=== PATIENT | male | born 1945 | race African-American/Black ===

== ENCOUNTER 2019-01-04 14:04 | Emergency (ER) | payer MEDICAID ==
[~2019-01-04] VITALS: Ht 172.7 cm; Wt 100.0 kg
[~2019-01-04 14:04] MED LIST: ASPI-1393 PO; METO25TA6 PO
[2019-01-04 16:19] LABS: CLARITY URINE CLEAR (CLEAR); COLOR URINE YELLOW (YELLOW); KETONES URINE NEGATIVE (NEGATIVE); LEUKOCYTE ESTERASE URINE 1+ (NEGATIVE); NITRITE URINE NEGATIVE (NEGATIVE); OCCULT BLOOD URINE NEGATIVE (NEGATIVE); PH URINE 6.5 (4.5-8.0); PROTEIN URINE NEGATIVE (NEGATIVE); SPECIFIC GRAVITY URINE 1.015 (1.005-1.030); UROBILINOGEN URINE 0.2 E.U./dL (0.2-1.0)
[2019-01-04 17:18] VITALS: BP 158/76
== END 2019-01-04 17:19 | disposition home or self-care (01) ==
LOC: ER 14:04
DX: M54.42 Lumbago with sciatica, left side (principal); M79.605 Pain in left leg; I10 Essential (primary) hypertension
CPT/HCPCS: 81003; 93971; 99284

== ENCOUNTER → 2023-08-04 | Outpatient (CLI) | payer MEDICARE, MEDICAID ==
[~2023-08-04] MED LIST changes: +ACET-2708 PO; -ASPI-1393 PO; +ASPI-1497 PO; +CEFAZOLIN SODIUM 1000MG/VIAL ONE; +CHOL500051 PO; +DEXAMETHASONE 4MG/ML 1ML VIAL ONE; +FENTANYL CITRATE/PF 50MCG/ML 2ML VIAL ONE; +GLYCOPYRROLATE 0.2 MG/ML 2ML VIAL ONE; +HYDRALAZINE 20MG/ML VIAL ONE; +HYDROMORPHONE HCL/PF 2MG/ML CPJ ONE; +ISOS30TA91 PO; +ISOS60TA76 PO; +LATA2.5D14 EACHEYE; +LIDOCAINE HCL 1% 10 MG/ML 10ML VIAL ONE; +LISI20TA31 PO; +METO-385 PO; +MIDAZOLAM HCL 2 MG/2 ML VIAL ONE; +NEOSTIGMINE METHYLSULFATE 1MG/ML 10 ML VIAL ONE; +NIFE-32 PO; +NITR0.4T49 SL; +ONDANSETRON HCL 4MG/2ML INJ ONE; +PROPOFOL 200MG/20ML VIAL IV ONE; +RANO500T6 PO; +ROCURONIUM BROMIDE 10MG/ML VIAL 5ML IV ONE; +SUCCINYLCHOLINE CHLORIDE 200MG/10ML IV ONE
[2023-08-04 10:55] LABS: BASOPHILS % 0.6 % (0.0-2.0); EOSINOPHILS % 5.4 % (0.0-5.0); HEMATOCRIT. 40.4 % (42.0-52.0); HEMOGLOBIN. 13.9 g/dL (14.0-18.0); LYMPHOCYTES % 53.3 % (20.0-50.0); MEAN CORPUSCULAR HEMOGLOBIN 32.4 pg (28.0-32.0); MEAN CORPUSCULAR HGB CONC 34.5 g/dL (31.0-37.0); MEAN PLATELET VOLUME 8.1 fl (7.4-10.4); MONOCYTES % 9.3 % (2.0-8.0); NEUTROPHILS % 31.4 % (40.0-76.0); PLATELET 198 x1000/uL (130-400); WHITE BLOOD COUNT 4.3 x1000/uL (4.5-11.0)
[2023-08-04 11:06] LABS: PARTIAL THROMBOPLASTIN TIME 24.5 sec (23.4-31.0); PROTHROMBIN TIME 11.2 sec (9.6-11.0)
[2023-08-04 11:16] LABS: CLARITY URINE CLEAR (CLEAR); COLOR URINE YELLOW (YELLOW); GLUCOSE URINE NEGATIVE (NEGATIVE); KETONES URINE NEGATIVE (NEGATIVE); LEUKOCYTE ESTERASE URINE 1+ (NEGATIVE); NITRITE URINE NEGATIVE (NEGATIVE); OCCULT BLOOD URINE NEGATIVE (NEGATIVE); PROTEIN URINE NEGATIVE (NEGATIVE); SPECIFIC GRAVITY URINE 1.006 (1.005-1.030); UROBILINOGEN URINE 0.2 E.U./dL (0.2-1.0)
[2023-08-04 11:20] LABS: ALANINE AMINOTRANSFERASE 16 IU/L (10-49); ALBUMIN 4.5 g/dL (3.2-4.8); ASPARTATE AMINOTRANSFERASE 19 IU/L (<34); BILIRUBIN TOTAL 0.7 mg/dL (0.1-1.0); CALCIUM 9.3 mg/dL (8.7-10.4); CARBON DIOXIDE 27 mEq/L (21-32); CHLORIDE 105 mEq/L (98-107); CREATININE 1.4 mg/dL (0.6-1.3); GLUCOSE 71 mg/dL (70-105); POTASSIUM 3.8 mEq/L (3.5-5.1); PROTEIN TOTAL 8.3 g/dL (6.0-8.3); SODIUM 138 mEq/L (136-145); UREA NITROGEN BLOOD 10 mg/dL (9-23)
[2023-08-04 12:06] LABS: RBC URINE 0-2 /hpf (0-2); SQUAMOUS EPITHELIAL CELL URINE NONE SEEN /lpf (RARE/1+); WBC URINE 0-2 /hpf (0-2)
[2023-08-04 12:07] LABS: BACTERIA URINE 2+
== END | disposition home or self-care (01) ==
LOC: LAB 10:18
PROVIDERS: ATTEND Neurological Surgery
DX: Z01.818 Encounter for other preprocedural examination (principal); M47.815 Spondylosis without myelopathy or radiculopathy, thoracolumbar region; M50.20 Other cervical disc displacement, unspecified cervical region
CPT/HCPCS: 36415; 71045; 80053; 81003; 85025; J1100; J1170; J2405; J2710; J3490

== ENCOUNTER 2023-08-07 05:43 | Inpatient (IN) | payer MEDICARE, MEDICAID ==
[2023-08-07] VITALS (21 sets, daily range): BP systolic 132–176; BP diastolic 49–62; PULSE 79–93; RESP 15–28; TEMP 98.3–98.5
[~2023-08-07] VITALS: Ht 170.2 cm; Wt 94.3 kg
[~2023-08-07 05:43] MED LIST changes: -ACET-2708 PO; -CEFAZOLIN SODIUM 1000MG/VIAL ONE; -CHOL500051 PO; -DEXAMETHASONE 4MG/ML 1ML VIAL ONE; -FENTANYL CITRATE/PF 50MCG/ML 2ML VIAL ONE; -GLYCOPYRROLATE 0.2 MG/ML 2ML VIAL ONE; -HYDRALAZINE 20MG/ML VIAL ONE; -HYDROMORPHONE HCL/PF 2MG/ML CPJ ONE; -ISOS30TA91 PO; -ISOS60TA76 PO; -LATA2.5D14 EACHEYE; -LIDOCAINE HCL 1% 10 MG/ML 10ML VIAL ONE; -LISI20TA31 PO; -METO-385 PO; -MIDAZOLAM HCL 2 MG/2 ML VIAL ONE; -NEOSTIGMINE METHYLSULFATE 1MG/ML 10 ML VIAL ONE; -NIFE-32 PO; -NITR0.4T49 SL; -ONDANSETRON HCL 4MG/2ML INJ ONE; -PROPOFOL 200MG/20ML VIAL IV ONE; -RANO500T6 PO; -ROCURONIUM BROMIDE 10MG/ML VIAL 5ML IV ONE; -SUCCINYLCHOLINE CHLORIDE 200MG/10ML IV ONE
[2023-08-07] MEDS ORDERED: LIDOCAINE HCL/EPINEPHRINE 1%-EPI 1:100,000 20 ML VIAL ONE (06:10)
[2023-08-07] MEDS ORDERED: THROMBIN (BOVINE) 5000 UNITS/VIAL TOP ONE (06:10)
[2023-08-07] MEDS ORDERED: GENTAMICIN SULF 40MG/ML 2ML VIAL ONE (06:10)
[2023-08-07] MEDS: LACTATED RINGERS 1,000 ML IV SCH (06:25)
[2023-08-07] MEDS ORDERED: CHOL500051 PO (06:30)
[2023-08-07] MEDS ORDERED: METO-385 PO (06:30)
[2023-08-07] MEDS ORDERED: RANO500T6 PO (06:30)
[2023-08-07] MEDS ORDERED: ISOS30TA91 PO (06:30)
[2023-08-07] MEDS ORDERED: ACET-2708 PO (06:32)
[2023-08-07] MEDS ORDERED: ONDANSETRON HCL 4MG/2ML INJ IV PRN (08:45)
[2023-08-07] MEDS ORDERED: MEPERIDINE HCL/PF 25MG/ML CPJ IV PRN (08:45)
[2023-08-07] MEDS ORDERED: LABETALOL 5MG/ML SYR 20 MG/4 ML SYRINGE IV PRN (08:45)
[2023-08-07] MEDS ORDERED: HYDRALAZINE 20MG/ML VIAL ONE (09:46)
[2023-08-07] MEDS ORDERED: NALOXONE HCL 0.4MG/ML VIAL IV PRN (10:30)
[2023-08-07] MEDS: HYDROMORPHONE HCL/PF 2MG/ML CPJ IV PRN ×2 (10:42→18:11)
[2023-08-07] MEDS: DEXT 5%/LACTATED RINGERS 1,000 ML IV SCH (10:52)
[2023-08-07] MEDS: NICARDIPINE 100 MG in SODIUM CHLORIDE 0.9% 60 ML IV PRN (11:47)
[2023-08-07] MEDS: DEXAMETHASONE 4MG/ML 1ML VIAL IV SCH (12:04)
[2023-08-07] MEDS ORDERED: CEFAZOLIN SODIUM 1000MG/VIAL IV SCH (14:00)
[2023-08-07] MEDS: CEFAZOLIN 1000MG PREMIX 50ML IV SCH (15:17)
[2023-08-07] MEDS ORDERED: IPRATROPIUM/ALBUTEROL 0.5-3(2.5)MG/3ML NEB HHN PRN (15:30)
[2023-08-07] MEDS: HYDRALAZINE 20MG/ML VIAL IV PRN (20:17)
[2023-08-07] MEDS: MORPHINE SULFATE 4 MG/ML INJ (FOR IV/IM USE) IV PRN (20:17)
[2023-08-07 20:54] LABS: LACTIC ACID 4.7 mmol/L (0.4-2.0)
[2023-08-07] MEDS: METOPROLOL SUCCINATE 50MG ER TABLET PO SCH (22:48)
[2023-08-07 23:15] LABS: CREATINE KINASE 606 IU/L (46-171); CREATINE KINASE MB FRACTION 11.8 ng/mL (0.5-3.6); TROPONIN I HIGH SENSITIVITY 27 ng/L (3.0-53)
[2023-08-07] MEDS: HYDROMORPHONE HCL/PF 2MG/ML CPJ IV NR (23:55)
[2023-08-08] VITALS (92 sets, daily range): BP systolic 136–152; BP diastolic 60–63; PULSE 67–102; RESP 12–35; TEMP 98.3–98.6
[2023-08-08 05:09] LABS: BASOPHILS % 0.1 % (0.0-2.0); HEMOGLOBIN. 13.5 g/dL (14.0-18.0); LYMPHOCYTES % 10.6 % (20.0-50.0); MEAN CORPUSCULAR HEMOGLOBIN 32.6 pg (28.0-32.0); MEAN CORPUSCULAR HGB CONC 34.6 g/dL (31.0-37.0); MEAN CORPUSCULAR VOLUME 94.2 fL (80.0-94.0); MEAN PLATELET VOLUME 8.2 fl (7.4-10.4); MONOCYTES % 3.5 % (2.0-8.0); NEUTROPHILS % 85.8 % (40.0-76.0); PLATELET 215 x1000/uL (130-400); RED BLOOD CELL COUNT 4.15 mill/uL (4.7-6.1); RED CELL DISTRIBUTION WIDTH 13.7 % (11.6-14.6)
[2023-08-08 05:15] LABS: CREATINE KINASE MB FRACTION 10.6 ng/mL (0.5-3.6)
[2023-08-08 05:18] LABS: ALANINE AMINOTRANSFERASE 14 IU/L (10-49); ALBUMIN 3.9 g/dL (3.2-4.8); ASPARTATE AMINOTRANSFERASE 24 IU/L (<34); BILIRUBIN TOTAL 0.5 mg/dL (0.1-1.0); CALCIUM 8.5 mg/dL (8.7-10.4); CARBON DIOXIDE 22 mEq/L (21-32); CHLORIDE 104 mEq/L (98-107); CHOLESTEROL 181 mg/dL (<200); CREATININE 1.2 mg/dL (0.6-1.3); GLUCOSE 139 mg/dL (70-105); HDL CHOLESTEROL 59 mg/dL (>55); LDL CHOLESTEROL 101 mg/dL (5-100); POTASSIUM 3.7 mEq/L (3.5-5.1); PROTEIN TOTAL 6.9 g/dL (6.0-8.3); SODIUM 134 mEq/L (136-145); T4 FREE 0.95 ng/dL (0.89-1.76); THYROID STIMULATING HORMONE 0.94 uIU/mL (0.55-4.78); TRIGLYCERIDE 62 mg/dL (0-150); UREA NITROGEN BLOOD 13 mg/dL (9-23)
[2023-08-08] MEDS: HYDROCODONE/ACETAMINOPHEN 7.5/325MG TABLET PO PRN (08:07)
[2023-08-08] MEDS ORDERED: NITR0.4T49 SL (09:15)
[2023-08-08] MEDS: ACETAMINOPHEN 325MG TABLET PO PRN (09:21)
[2023-08-08 12:51] LABS: LACTIC ACID 2.7 mmol/L (0.4-2.0)
[2023-08-08] MEDS: AMLODIPINE 2.5MG TABLET PO SCH (14:57)
[2023-08-08] MEDS ORDERED: LISINOPRIL 10MG TABLET PO SCH (15:30)
[2023-08-08 16:40] LABS: PHOSPHORUS 2.1 mg/dL (2.5-4.9)
[2023-08-08] MEDS ORDERED: LATA2.5D14 EACHEYE (18:18)
[2023-08-08] MEDS: ZOLPIDEM TARTRATE 5MG TABLET PO PRN (20:32)
[2023-08-08] MEDS: LATANOPROST 0.005% OPHTH DROPS 2.5ML EACHEYE SCH (21:05)
[2023-08-09] VITALS (91 sets, daily range): BP systolic 121–159; BP diastolic 52–115; PULSE 74–113; RESP 9–32; TEMP 98.3–98.9
[2023-08-09] MEDS: LISINOPRIL 5MG TABLET PO SCH (08:30)
[2023-08-09 09:36] LABS: HEMATOCRIT 39.8 % (42.0-52.0); HEMOGLOBIN 13.4 g/dL (14.0-18.0); MEAN CORPUSCULAR HEMOGLOBIN 31.9 pg (28.0-32.0); MEAN CORPUSCULAR HGB CONC 33.6 g/dL (31.0-37.0); PLATELET 221 x1000/uL (130-400); RED BLOOD CELL COUNT 4.19 mill/uL (4.7-6.1); WHITE BLOOD COUNT 8.8 x1000/uL (4.5-11.0)
[2023-08-09 09:59] LABS: ALANINE AMINOTRANSFERASE 12 IU/L (10-49); ALBUMIN 4.1 g/dL (3.2-4.8); ASPARTATE AMINOTRANSFERASE 20 IU/L (<34); BILIRUBIN TOTAL 0.5 mg/dL (0.1-1.0); CALCIUM 8.8 mg/dL (8.7-10.4); CARBON DIOXIDE 22 mEq/L (21-32); CHLORIDE 107 mEq/L (98-107); CREATININE 1.2 mg/dL (0.6-1.3); GLUCOSE 192 mg/dL (70-105); PROTEIN TOTAL 7.5 g/dL (6.0-8.3); SODIUM 136 mEq/L (136-145); UREA NITROGEN BLOOD 16 mg/dL (9-23)
[2023-08-09] MEDS: AMLODIPINE 5MG TABLET PO NR (13:11)
[2023-08-10] VITALS (98 sets, daily range): BP systolic 120–175; BP diastolic 54–105; PULSE 69–111; RESP 14–32; TEMP 98–98.8
[2023-08-10 05:46] LABS: HEMATOCRIT 39.8 % (42.0-52.0); HEMOGLOBIN 13.4 g/dL (14.0-18.0); MEAN CORPUSCULAR HEMOGLOBIN 32.3 pg (28.0-32.0); MEAN CORPUSCULAR HGB CONC 33.6 g/dL (31.0-37.0); PLATELET 217 x1000/uL (130-400); RED BLOOD CELL COUNT 4.14 mill/uL (4.7-6.1); RED CELL DISTRIBUTION WIDTH 13.9 % (11.6-14.6); WHITE BLOOD COUNT 8.8 x1000/uL (4.5-11.0)
[2023-08-10 05:56] LABS: ALANINE AMINOTRANSFERASE 11 IU/L (10-49); ALBUMIN 3.7 g/dL (3.2-4.8); ASPARTATE AMINOTRANSFERASE 18 IU/L (<34); BILIRUBIN TOTAL 0.6 mg/dL (0.1-1.0); CALCIUM 8.4 mg/dL (8.7-10.4); CARBON DIOXIDE 23 mEq/L (21-32); CHLORIDE 107 mEq/L (98-107); CREATININE 1.1 mg/dL (0.6-1.3); GLUCOSE 98 mg/dL (70-105); POTASSIUM 3.9 mEq/L (3.5-5.1); PROTEIN TOTAL 6.6 g/dL (6.0-8.3); SODIUM 138 mEq/L (136-145); UREA NITROGEN BLOOD 17 mg/dL (9-23)
[2023-08-10] MEDS: AMLODIPINE 10MG TABLET PO SCH (09:25)
[2023-08-10] MEDS: LISINOPRIL 10MG TABLET PO NR (11:24)
[2023-08-10 12:04] LABS: TROPONIN I HIGH SENSITIVITY 36 ng/L (3.0-53)
[2023-08-10] MEDS ORDERED: NIFEDIPINE XL 60MG TAB PO SCH (17:00)
[2023-08-11] VITALS (48 sets, daily range): BP systolic 110–159; BP diastolic 55–76; PULSE 79–108; RESP 13–32; TEMP 97.5–98.6; O2SAT 99
[2023-08-11 05:23] LABS: HEMOGLOBIN 14.1 g/dL (14.0-18.0); MEAN CORPUSCULAR HEMOGLOBIN 32.7 pg (28.0-32.0); MEAN CORPUSCULAR HGB CONC 34.5 g/dL (31.0-37.0); MEAN CORPUSCULAR VOLUME 94.7 fL (80.0-94.0); PLATELET 213 x1000/uL (130-400); RED BLOOD CELL COUNT 4.32 mill/uL (4.7-6.1); RED CELL DISTRIBUTION WIDTH 13.8 % (11.6-14.6); WHITE BLOOD COUNT 8.5 x1000/uL (4.5-11.0)
[2023-08-11 05:37] LABS: ALANINE AMINOTRANSFERASE 13 IU/L (10-49); ALBUMIN 3.7 g/dL (3.2-4.8); ASPARTATE AMINOTRANSFERASE 17 IU/L (<34); BILIRUBIN TOTAL 0.8 mg/dL (0.1-1.0); CALCIUM 8.3 mg/dL (8.7-10.4); CARBON DIOXIDE 25 mEq/L (21-32); CHLORIDE 106 mEq/L (98-107); GLUCOSE 81 mg/dL (70-105); POTASSIUM 3.7 mEq/L (3.5-5.1); PROTEIN TOTAL 6.7 g/dL (6.0-8.3); SODIUM 137 mEq/L (136-145); UREA NITROGEN BLOOD 17 mg/dL (9-23)
[2023-08-11] MEDS: AMLODIPINE 10MG TABLET PO SCH (09:01)
[2023-08-11] MEDS: LISINOPRIL 20MG TABLET PO SCH (12:04)
[2023-08-11] MEDS ORDERED: ISOSORBIDE MONONITRATE 30MG TABLET SR 24HR PO SCH (13:15)
[2023-08-11] MEDS ORDERED: NIFEDIPINE XL 60MG TAB PO SCH (13:15)
[2023-08-11] MEDS ORDERED: ASPI-1497 PO (14:36)
[2023-08-11] MEDS ORDERED: RANO500T6 PO (14:36)
[2023-08-11] MEDS ORDERED: METO-385 PO (14:36)
[2023-08-11] MEDS ORDERED: NIFE-32 PO (14:36)
[2023-08-11] MEDS ORDERED: LISI20TA31 PO (14:36)
[2023-08-11] MEDS ORDERED: ISOS60TA76 PO (14:36)
[2023-08-11] MEDS ORDERED: CHOL500051 PO (14:36)
[2023-08-11] MEDS ORDERED: NITR0.4T49 SL (14:36)
[2023-08-11] MEDS ORDERED: LATA2.5D14 EACHEYE (14:36)
[2023-08-11] MEDS: RANOLAZINE 500 MG TAB.SR.12H PO SCH (15:07)
[2023-08-11] MEDS: NIFEDIPINE XL 60MG TAB PO SCH (15:07)
[2023-08-12] MEDS ORDERED: ISOSORBIDE MONONITRATE 60MG TABLET SR 24HR PO SCH (09:00)
== END 2023-08-11 18:25 | disposition home or self-care (01) | DRG 471 ==
LOC: OR 05:43 → MICUSO 19:14 → 7WST 08-11 14:18
PROVIDERS: ADMIT Neurological Surgery; ATTEND Neurological Surgery
PROC: 0RG2071 Fusion of 2 or more Cervical Vertebral Joints with Autologous Tissue Substitute, Posterior Approach, Posterior Column, Open Approach (ICD-10-PCS; principal; 2023-08-07)
PROC: 00NW0ZZ Release Cervical Spinal Cord, Open Approach (ICD-10-PCS; 2023-08-07)
PROC: 4A11X4G Monitoring of Peripheral Nervous Electrical Activity, Intraoperative, External Approach (ICD-10-PCS; 2023-08-07)
DX: M48.02 Spinal stenosis, cervical region (principal); G82.50 Quadriplegia, unspecified; M47.12 Other spondylosis with myelopathy, cervical region; N39.0 Urinary tract infection, site not specified; N17.9 Acute kidney failure, unspecified; E87.1 Hypo-osmolality and hyponatremia; E87.20 Acidosis, unspecified; M47.22 Other spondylosis with radiculopathy, cervical region; I10 Essential (primary) hypertension; I16.0 Hypertensive urgency; D64.9 Anemia, unspecified; Z79.899 Other long term (current) drug therapy
CPT/HCPCS: 36415; 71045; 72040; 72141; 76000; 80053; 80061; 82550; 82553; 83036; 83605; 83735; 83880; 84100; 84145; 84439; 84443; 84484; 85025; 85027; 86850; 86900; 93005; 93306; 97116; 97162; 97535; J0330; J0360; J0690; J1100; J1170; J1580; J2250; J2270; J2704; J2710; J3010; J3490; J7040; J7050; J7121; L0172; C1713

== ENCOUNTER 2023-10-08 02:39 | Emergency (ER) | payer MEDICARE, MEDICAID ==
[~2023-10-08] VITALS: Ht 177.8 cm; Wt 82.0 kg
[~2023-10-08 02:39] MED LIST changes: +ACET-2708 PO; +CHOL500051 PO; +ISOS60TA76 PO; +LATA2.5D14 EACHEYE; +LISI20TA31 PO; +METO-385 PO; -METO25TA6 PO; +NIFE-32 PO; +NITR0.4T49 SL; +RANO500T6 PO
[2023-10-08 03:07] VITALS: BP 185/77; RESP 18; TEMP 98.4; O2SAT 100
[2023-10-08 03:08] VITALS: PULSE 77
[2023-10-08 03:38] LABS: BASOPHILS % 0.4 % (0.0-2.0); EOSINOPHILS % 3.7 % (0.0-5.0); HEMATOCRIT. 37.1 % (42.0-52.0); HEMOGLOBIN. 12.8 g/dL (14.0-18.0); LYMPHOCYTES % 40.7 % (20.0-50.0); MEAN CORPUSCULAR HEMOGLOBIN 32.7 pg (28.0-32.0); MEAN CORPUSCULAR HGB CONC 34.5 g/dL (31.0-37.0); MEAN CORPUSCULAR VOLUME 94.9 fL (80.0-94.0); MEAN PLATELET VOLUME 7.7 fl (7.4-10.4); MONOCYTES % 8.3 % (2.0-8.0); NEUTROPHILS % 46.9 % (40.0-76.0); PLATELET 207 x1000/uL (130-400); RED BLOOD CELL COUNT 3.91 mill/uL (4.7-6.1); RED CELL DISTRIBUTION WIDTH 14.9 % (11.6-14.6); WHITE BLOOD COUNT 5.1 x1000/uL (4.5-11.0)
[2023-10-08 03:43] LABS: CHLORIDE 105 mEq/L (98-107); POTASSIUM 3.9 mEq/L (3.5-5.1); SODIUM 138 mEq/L (136-145)
[2023-10-08 03:44] LABS: CALCIUM 9.6 mg/dL (8.7-10.4); CARBON DIOXIDE 25 mEq/L (21-32)
[2023-10-08 03:49] LABS: GLUCOSE 106 mg/dL (70-105); UREA NITROGEN BLOOD 9 mg/dL (9-23)
[2023-10-08 03:59] LABS: CREATININE 1.4 mg/dL (0.6-1.3)
[2023-10-08 04:23] LABS: TROPONIN I HIGH SENSITIVITY < 4 ng/L (3.0-53)
== END 2023-10-08 05:12 | disposition home or self-care (01) ==
LOC: ER 02:51
DX: R07.89 Other chest pain (principal); R06.02 Shortness of breath; I10 Essential (primary) hypertension
CPT/HCPCS: 36415; 71045; 80048; 83880; 84484; 85025; 93005; 99285

== ENCOUNTER 2023-11-21 19:50 | Emergency (ER) | payer MEDICARE, MEDICAID ==
[~2023-11-21] VITALS: Ht 172.7 cm; Wt 91.0 kg
[2023-11-21 19:55] VITALS: O2SAT 98
[2023-11-21] MEDS ORDERED: IBUPROFEN 400MG TABLET PO ONE (22:15)
[2023-11-21] MEDS ORDERED: IBUP-2028 MT (23:21)
[2023-11-22 00:18] VITALS: BP 100/60; PULSE 80; RESP 15; TEMP 98.5
== END 2023-11-22 01:40 | disposition home or self-care (01) ==
LOC: ER 19:50
DX: R07.81 Pleurodynia (principal); M54.9 Dorsalgia, unspecified; I10 Essential (primary) hypertension; W01.0XXA Fall on same level from slipping, tripping and stumbling without subsequent striking against object, initial encounter; Y93.89 Activity, other specified; Y92.89 Other specified places as the place of occurrence of the external cause; Y99.8 Other external cause status
CPT/HCPCS: 71101; 72100; 99284

== ENCOUNTER → 2024-01-17 | Outpatient (CLI) | payer MEDICARE, MEDICAID ==
[~2024-01-17] MED LIST changes: +IBUP-2028 MT
== END | disposition home or self-care (01) ==
LOC: MRI 07:31
PROVIDERS: ATTEND Neurological Surgery
DX: M54.2 Cervicalgia (principal)
CPT/HCPCS: 72141